=== PATIENT | male | born 1995 | race African-American/Black ===

== ENCOUNTER 2016-12-26 14:56 | Emergency (ER) | payer SELFPAY ==
[~2016-12-26] VITALS: Ht 180.3 cm; Wt 80.0 kg
[~2016-12-26 14:56] MED LIST: CYCL-36 PO; CYCL5TAB PO; IBUP800 PO; NAPR500 PO
[2016-12-26 14:59] VITALS: BP 165/96; PULSE 103; RESP 20; TEMP 98.2; O2SAT 96
--- NOTE | 2016-12-26 15:33 | PD ---
HPI Chief Complaint: Injury Time Seen by Provider: 15:33 Travel History International Travel<30 days: No Contact w/Intl Traveler<30days: No Traveled to known affect area: No History of Present Illness HPI 21-year-old male presents to the emergency Department with complaint of left ankle pain and swelling after falling down a flight of approximately 8 or 9 stairs this morning at 6 AM. He says he did hit his head but denies loss of consciousness. He states that he barely hit his head. Denies headache, lightheadedness, dizziness. Denies neck pain, back pain. Denies other extremity pain. Denies confusion, disorientation, change in mentation, focal deficits or weakness. Denies chest pain, shortness of breath, abdominal pain, nausea, vomiting. Denies hematemesis, hematochezia, hematuria, hemoptysis. Has not been ambulatory on the affected extremity. Denies paresthesias, loss of sensation to the affected extremity. Reports decreased range of motion at the ankle secondary to pain and swelling. Has not taken any medications or tried any treatments to alleviate his symptoms. No known allergies. Denies significant past medical history. No other modifying factors or associated signs and symptoms. [facility] Social History Alcohol Use: No Tobacco Use: No Substance Use: No Allergies-Medications (Allergen,Severity, Reaction): Coded Allergies: No Known Allergies (Unverified , 12/26/16) Reported Meds & Prescriptions Reported Meds & Active Scripts Active Ibuprofen 800 Mg Tab 800 Mg PO Q6HR PRN Review of Systems Except as stated in HPI: all other systems reviewed are Neg Physical Exam Narrative GENERAL: Well-nourished, well-developed male patient, in no acute distress SKIN: Warm and dry. HEAD: Atraumatic. Normocephalic. No facial or scalp abrasions or lacerations noted. EYES: Pupils equal and round at [-] mm with brisk reaction. No scleral icterus. No injection or drainage. No raccoon eyes. No orbital tenderness on palpation bilaterally. ENT: Mucosa pink and moist. No erythema or exudates. No uvular edema. No uvular , palatal, or tonsillar deviation. Airway patent. Nares without nasal blood, purulent drainage or septal hematoma. No rhinorrhea. EARS: Bilateral pinnae and external canals appear within normal limits. Bilateral tympanic membranes without erythema, dullness, hemotympanum or perforation. No otorrhea. No rojas signs. NECK: Moving freely. Trachea midline. Active rotation of the neck greater than 45 left and right. No midline point tenderness on palpation of the cervical spine. No obvious deformities. CHEST: Nontender throughout without deformity or crepitance. No retractions or use of accessory muscles. CARDIOVASCULAR: Regular rate and rhythm. No murmur appreciated. RESPIRATORY: No accessory muscle use. Clear to auscultation. Breath sounds equal bilaterally. GASTROINTESTINAL: Abdomen soft, non-tender, nondistended. Hepatic and splenic margins not palpable. Bowel sounds are active 4 quadrants. MUSCULOSKELETAL: Left ankle is edematous; with tenderness on palpation to the entire ankle; sensory intact. Left lower extremity is supple and non-tense with 2+ pedal pulses and sensory intact. No obvious deformities. No clubbing. No cyanosis. No edema. BACK: No midline Point tenderness on palpation of the lumbar or thoracic spine. No obvious deformities. Patient sitting up in bed at 90. NEUROLOGICAL: Awake and alert. Oriented 3. No obvious cranial nerve deficits. Motor grossly within normal limits. Normal speech. No midline drift. No ataxia. Moves all extremities. 5/5 strength to all extremities. Sensory intact. PSYCHIATRIC: Appropriate mood and affect; insight and judgment normal. Data Data Last Documented VS Vital Signs Date Time Temp Pulse Resp B/P Pulse Ox O2 Delivery O2 Flow Rate FiO2 12/26/16 14:59 98.2 103 20 165/96 96 Room Air Orders Ankle, Complete (Mgi6sis) (12/26/16 15:33) Ice/Cold Pack (12/26/16 15:33) Oxycodone-Acetamin 5-325 Mg (Percocet (12/26/16 15:45) Crutches (12/26/16 16:19) Splint Or Brace Apply/Monitor (12/26/16 16:19) MDM Medical Decision Making Medical Screen Exam Complete: Yes Emergency Medical Condition: Yes Medical Record Reviewed: Yes Differential Diagnosis Ankle sprain, ankle fracture, fall Narrative Course 21-year-old male with left ankle injury after falling down a flight of stairs approximately 8 or 9 steps. The patient admits to hitting their head, but denies loss of consciousness. Denies nausea, vomiting. On physical exam the patient is without raccoon eyes, rojas signs, rhinorrhea, or hemotympanum. I do not suspect open or depressed skull fracture, and the patient has no signs of basilar skull fracture. Door CT Head Injury Rule suggests a head CT is not necessary for this patient and clears the patient for head injury without imaging. Denies neck pain. Door C-Spine Rule suggests the C-Spine can be cleared clinically of fracture, and imaging is not required. There is no midline point tenderness on palpation of the cervical spine. The patient is able to actively rotate the neck 45 left and right. The patient is sitting up in bed at 90. The patient is ambulatory on his unaffected leg. Percocet administered in the ER. Left ankle x-ray ordered. 1620: Left ankle x-ray with no acute findings. Raymundo bandage and Velcro ankle splint provider for support. Crutches provided for support. Instructed patient to follow up if symptoms persist greater than 7-10 days. Ibuprofen prescribed for home. Patient verbalizes understanding and agreement with treatment plan. Patient is medically cleared and stable for discharge. Discussed reasons to return to the emergency department. Instructed patient to follow up with primary care provider. Patient agrees with treatment plan. The patients vital signs are stable and the patient is stable for outpatient follow- up and treatment. Patient discharged home, stable and in no acute distress. Diagnosis Primary Impression: Fall down stairs Qualified Code: W10.8XXA - Fall down stairs, initial encounter Additional Impression: Left ankle sprain Qualified Code: S93.402A - Sprain of left ankle, unspecified ligament, initial encounter Referrals: Orthopedist Primary Care Physician Patient Instructions: Ankle Sprain (ED), Crutch Instructions (ED), General Instructions Departure Forms: Tests/Procedures, Work Release Enter return to work date: Jan 02, 2017 Additional Instructions: Tylenol or ibuprofen as directed and as needed for pain and inflammation Rest, ice, compress, and elevate extremity to decrease pain and inflammation Ankle Brace for support Crutches for support Avoid aggravating activity; increase activity as tolerated Follow-up with primary care provider Follow-up with orthopedist as needed if symptoms persist greater than 7-10 days Return to the emergency department immediately with worsening symptoms Med/Other Pt SpecificInfo: Prescription(s) given Scripts Ibuprofen 800 Mg Ceo289 Mg PO Q6HR PRN (PAIN) #30 TAB Ref 0 Prov:Trish Sidhu 12/26/16 Disposition: 01 DISCHARGE HOME Condition: Stable Trish Sidhu Dec 26, 2016 15:33
[2016-12-26] MEDS ORDERED: oxyCODONE/ACETAMINOPHEN 5 MG/325 MG TAB PO ONE (15:45)
--- NOTE | 2016-12-26 16:11 | RADRPT ---
EXAM DATE/TIME: 12/26/2016 15:52 [facility] COMPARISON: No previous studies available for comparison. INDICATIONS : Pain from fall down stairs. MEDICAL HISTORY : None. SURGICAL HISTORY : None. ENCOUNTER: Initial ACUITY: 1 day PAIN SCORE: 7/10 LOCATION: Left ankle. FINDINGS: Bones of the left ankle are intact. There is anterior and lateral soft tissue swelling. No radiopaque foreign body seen. CONCLUSION: Soft tissue swelling without fracture. Bladimir Andersen MD on December 26, 2016 at 16:09 Board Certified Radiologist. This report was verified electronically.
[2016-12-26] MEDS ORDERED: IBUP800T23 PO (16:19)
== END 2016-12-26 16:50 | disposition home or self-care (01) ==
LOC: NETRI 14:56
DX: S93.402A Sprain of unspecified ligament of left ankle, initial encounter (principal); W10.9XXA Fall (on) (from) unspecified stairs and steps, initial encounter; Y99.8 Other external cause status
CPT/HCPCS: 73610; 99283; E0113; L1906